=== PATIENT | male | born 1975 | race Caucasian/White ===

== ENCOUNTER 2020-02-19 10:47 | Emergency (ER) | payer OTHER ==
[2020-02-19] MEDS ORDERED: Lidocaine 1% with EPINEPHrine 1:100,000 50 ML MDV SUBCUT STA (11:04)
[2020-02-19] MEDS ORDERED: Bacitracin Oint 1 GM U/D Packet TOP ONE (11:04)
--- NOTE | 2020-02-19 11:09 | EDM.PDOC ---
ED HPI GENERAL MEDICAL PROBLEM - General Chief Complaint: Laceration Stated Complaint: CUT LEFT HAND Time Seen by Provider: 02/19/20 11:00 Source of Information: Reports: Patient, Old Records History Limitations: Reports: No Limitations - History of Present Illness INITIAL COMMENTS - FREE TEXT/NARRATIVE: 44 yo male lacerated his L hand in the web space with sheet metal just before arrival. No other sx's. Not sure about tetanus. Onset: Today, Sudden Onset Date: 02/19/20 Onset Time: 10:25 Duration: Minutes: Location: Reports: Upper Extremity, Left Quality: Reports: Sharp Severity: Moderate Improves with: Reports: None Worsens with: Reports: Other (touching wound) Context: Reports: Trauma Associated Symptoms: Reports: No Other Symptoms Treatments [employer]: Reports: Other (see below) (none) - Related Data Allergies Allergy/AdvReac Type Severity Reaction Status Date / Time Sulfa (Sulfonamide AdvReac Abdominal Verified 02/19/20 11:02 Antibiotics) Pain Home Meds: Home Meds NK [No Known Home Meds] 02/19/20 [History] Past Medical History Musculoskeletal History: Reports: Amputation Other Musculoskeletal History: right pinky finger - Past Surgical History Head Surgeries/Procedures: Reports: None Musculoskeletal Surgical History: Reports: None Dermatological Surgical History: Reports: None ED ROS GENERAL - Review of Systems Review Of Systems: See Below Constitutional: Reports: No Symptoms HEENT: Reports: No Symptoms Musculoskeletal: Reports: No Symptoms Skin: Reports: Wound (L hand) Neurological: Reports: No Symptoms ED EXAM, SKIN/RASH Exam: See Below Exam Limited By: Uncooperative General Appearance: Alert, WD/WN, No Apparent Distress Extremities: Other (wound L hand between thumb and index finger) Neurological: Alert, Oriented, CN II-XII Intact, Normal Cognition, No Motor/Sensory Deficits Psychiatric: Normal Affect, Normal Mood Skin: Warm, Dry, Normal Color, No Rash, Wound/Incision Location, Skin: Lower Extremity, Left Characteristics: Linear Associated features: Tenderness ED SKIN PROCEDURES - Laceration/Wound Repair Left Hand Appearance: Linear, Clean Distal NVT: Neuro & Vascular Intact, No Tendon Injury Anesthetic Type: Local Local Anesthesia - Lidocaine (Xylocaine): 1% with EPI Skin Prep: Saline Saline Irrigation (cc's): 30 Exploration/Debridement/Repair: Wound Explored Closed with: Sutures Lac/Wound length In cm: 2.5 Suture Size: 5-0 # of Sutures: 4 Suture Type: Prolene, Simple, Mattress Drain Placement: No Sterile Dressing Applied: Nurse Tetanus Status Addressed: Yes Complications: No Course - Orders/Labs/Meds Orders: Active Orders 24 hr Category Date Time Status Bacitracin [Bacitracin Oint 1 GM] Med 02/19/20 11:04 Once 1 dose TOP ONETIME ONE Lidocaine 1% w/EPINEPHrine [Xylocaine 1% with Med 02/19/20 11:04 Stat EPINEPHrine 1:100,000] 8 ml SUBCUT NOW STA Departure - Departure Time of Disposition: 11:30 Disposition: Home, Self-Care 01 Condition: Good Clinical Impression: Laceration of left hand Qualifiers: Encounter type: initial encounter Foreign body presence: without foreign body Qualified Code(s): S61.412A - Laceration without foreign body of left hand, initial encounter - Discharge Information *PRESCRIPTION DRUG MONITORING PROGRAM REVIEWED*: No *COPY OF PRESCRIPTION DRUG MONITORING REPORT IN PATIENT RENETTA: No Instructions: Laceration Care, Adult, [id number] Referrals: Heath Haque MD [Primary Care Provider] - Additional Instructions: Clean hand twice daily with soap and water. Dry. Apply antibiotic ointment and a new dressing. Keep wound clean x 3 days. Stitches out 11 days. Recheck sooner for signs of infection. - My Orders Last 24 Hours: My Active Orders 02/19/20 11:04 Bacitracin [Bacitracin Oint 1 GM] 1 dose TOP ONETIME ONE 02/19/20 11:04 Lidocaine 1% w/EPINEPHrine [Xylocaine 1% with EPINEPHrine 1:100,000] 8 ml SUBCUT NOW STA - Assessment/Plan Last 24 Hours: My Active Orders 02/19/20 11:04 Bacitracin [Bacitracin Oint 1 GM] 1 dose TOP ONETIME ONE 02/19/20 11:04 Lidocaine 1% w/EPINEPHrine [Xylocaine 1% with EPINEPHrine 1:100,000] 8 ml SUBCUT NOW STA
== END 2020-02-19 11:55 | disposition home or self-care (01) ==
LOC: JP.ED 10:47
DX: S61.412A Laceration without foreign body of left hand, initial encounter (principal); Z88.2 Allergy status to sulfonamides; W26.8XXA Contact with other sharp object(s), not elsewhere classified, initial encounter
CPT/HCPCS: 12001; 99282